=== PATIENT | female | born 1935 | race Caucasian/White ===

== ENCOUNTER 2017-11-17 06:33 | Day surgery (SDC) | payer MEDICARE, BC ==
[~2017-11-17 06:33] MED LIST: Acetaminophen TAB* 325 MG PO PRN; Buffered Lidocaine 0.9% SYRIN* 5 ML/SYR SYRINGE INTRADERM ONE; Proparacaine 0.5% OPHTH.SOL* 15 ML BTL ONE; mitoMYcin 0.2 MG (0.02%) in Sterile Water for Inj* 1 ML OPHTHALMIC SCH
[2017-11-17] MEDS ORDERED: Hyaluronidase OVINE* 200 UNIT/ML ML SUBCUT ONE (07:02)
[2017-11-17] MEDS ORDERED: Sodium Bicarbonate 8.4% SYR* 10 ML SYRINGE ONE (07:02)
[2017-11-17] MEDS ORDERED: Lidocaine 2% PF* 10 ML AMP ONE (07:02)
[2017-11-17] MEDS ORDERED: Povidone Iodine 5% OPTH* 30 ML BTL ONE (07:04)
[2017-11-17] MEDS ORDERED: Acetylcholine 1:100 OPTH* OPHTH.SOLN ONE (07:04)
[2017-11-17] MEDS ORDERED: Atropine 1% OPHTH.SOL* 2 ML BOT - 2 ML ONE (07:04)
[2017-11-17] MEDS ORDERED: Neomycin/Polymy/Dex OPTH.SUSP* MAXITROL 0.1% 5 ML ONE (07:04)
[2017-11-17] MEDS ORDERED: BSS OPTH.SOL* BTL ONE (07:04)
[2017-11-17] MEDS ORDERED: Midazolam* 1 MG/ML 2 ML VIAL (2 MG) ONE (07:18)
[2017-11-17] MEDS ORDERED: fentaNYL* 50 MCG/ML 2 ML VIAL (100 MCG VIAL) ONE (07:18)
[2017-11-17] MEDS ORDERED: Propofol* 10 MG/ML 20 ML BTL IV PUSH ONE (07:27)
[2017-11-17] MEDS ORDERED: Triamcinolone Acetonide* 40 MG/ML 1 ML VIAL ONE (08:11)
[2017-11-17 08:45] VITALS: BP 154/53
--- NOTE | 2017-11-17 20:48 | OP ---
DATE OF OPERATION: 11/17/17 [facility] DATE OF : 39 SURGEON: Franc Romero M.D. ANESTHESIA: Local with MAC. PRE-OP DIAGNOSIS: Uncontrolled glaucoma, right eye. POST-OP DIAGNOSIS: Uncontrolled glaucoma, right eye. OPERATIVE PROCEDURE: Trabeculectomy, right eye. COMPLICATIONS: None. DESCRIPTION OF PROCEDURE: The patient was given retrobulbar anesthesia in the operating room, 0.75 Marcaine and 2% lidocaine with epinephrine, 4 cc ingested into the muscle cone without difficulty. Eye was prepped and draped in the usual sterile fashion. Lid speculum placed, superior limbal. A 6-0 silk traction suture was placed and then the eye rotated inferiorly. A Fornix-based conjunctival flap was created using Valarie scissors from 10 o'clock to 12 o' clock position. Mitomycin-C 0.2 mg/mL placed sub-Tenon's for 1 minute and thoroughly irrigated. A triangular limbal based flap past the scleral thickness created with the 75 blade and the crescent blade. A 75 blade used to make paracentesis at the 8 o'clock position. Anterior chamber entered with a 3- mm keratome. A 3 x 1 mm trabecular block excised using the Marilyn punch. A peripheral iridectomy performed with Vannas scissors in the area of 11 o'clock. The flap suture done with one 10-0 nylon interrupted suture. Tension adjusted for proper fluid flow. Conjunctiva was closed using a running locking 10-0 silk and running locking 10-0 Vicryl. Sub- Tenon's, Kenalog 40 mg/mL, 1 mL was injected. The traction suture was removed. Maxitrol and atropine was given. The eye was tightly patched. [id number]/[facility] #: [id number] [facility]
== END 2017-11-17 08:53 | disposition home or self-care (01) ==
LOC: OREAST 06:33
PROVIDERS: ATTEND Specialist
DX: H40.143 Capsular glaucoma with pseudoexfoliation of lens, bilateral (principal); E11.3293 Type 2 diabetes mellitus with mild nonproliferative diabetic retinopathy without macular edema, bilateral; Z79.4 Long term (current) use of insulin; H34.11 Central retinal artery occlusion, right eye; H25.11 Age-related nuclear cataract, right eye; F10.20 Alcohol dependence, uncomplicated; I10 Essential (primary) hypertension; Z85.41 Personal history of malignant neoplasm of cervix uteri
CPT/HCPCS: A9270-GY; J2001; J2250; J2704; J3010; J3301; J3471; J9280

== ENCOUNTER 2023-11-16 06:08 | Inpatient (IN) ==
[2023-11-16 06:52] LABS: Hematocrit 43.6 % (35-45); Hemoglobin 14.3 g/dL (11.5-14.3); Mean Corpuscular Hemoglobin 29.4 pg (27-33); Mean Corpuscular Hgb Conc 32.9 g/dL (31-36); Mean Corpuscular Volume 89.3 fL (80-97); Mean Platelet Volume 9.5 fL (7.5-11.2); Platelet Count 228 10^3/uL (150-450); Red Blood Count 4.88 10^6/uL (3.63-4.92); White Blood Count 23.1 10^3/uL (3.8-11.8)
[2023-11-16 06:57] LABS: Urine Appearance Turbid; Urine Bilirubin Negative (Negative); Urine Blood Negative (Negative); Urine Color Yellow; Urine Glucose 3+(>=500 mg/dL) (Negative); Urine Ketones Negative (Negative); Urine Nitrite Negative (Negative); Urine Protein 1+(30 mg/dL) (Negative); Urine Specific Gravity 1.017 (1.002-1.030); Urine Urobilinogen Negative (Negative)
[2023-11-16 07:01] LABS: Budding Yeast Present (Absent); Urine Bacteria 3+ (Absent); Urine Red Blood Cell Absent (Absent); Urine White Blood Cell 1+(6-10/hpf) (Absent); Urine Yeast Present (Absent)
[2023-11-16 07:10] LABS: INR 0.95 (0.83-1.13)
[2023-11-16 07:14] LABS: Albumin 3.3 g/dL (3.2-5.2); Albumin/Globulin Ratio 1.2 (1-3); Calcium 8.9 mg/dL (8.6-10.3); Creatinine, Serum 0.87 mg/dL (0.51-0.95); Globulin 2.7 g/dL (2-4); Magnesium 2.1 mg/dL (1.9-2.7); Potassium 3.8 mmol/L (3.5-5.0); Total Bilirubin 0.7 mg/dL (0.2-1.0); eGFR CKD-EPI 64.8 (>60)
[2023-11-16] MEDS ORDERED: cefTRIAXone 1 gm/50 mL D5W 1 GM/50 ML BAG IV ONE (07:21)
[2023-11-16] MEDS ORDERED: Lactated Ringers 1000 ml BAG 1,000 ML IV ONE (07:21)
[2023-11-16] MEDS ORDERED: Iodixanol (CONTRAST) 320 MG/ML 100 ML SDV IV ONE (07:54)
[2023-11-16 08:51] LABS: TSH Ultra Thyroid Stim Horm 2.6 mcIU/mL (0.34-5.60)
[2023-11-16 09:12] LABS: High Sensitivity Troponin 1 Hr 23 pg/mL (<15)
[2023-11-16] MEDS ORDERED: Azithromycin 500 mg/250 ml NS 500 MG/250 ML BAG IVPB ONE (09:42)
[2023-11-16 10:26] LABS: ABS Basophils 0.1 10^3/uL (0.0-0.1); ABS Lymphocytes 0.7 10^3/uL (1.0-4.8); ABS Monocytes 1.8 10^3/uL (0.0-0.9); ABS Neutrophils 20.5 10^3/uL (1.5-7.6); ABS Nucleated RBC 0.01 10^3/ul; Lymphocyte % 2.8 %; Nucleated Red Blood Cells % 0.1 %/100WBC (0.0-0.8)
[2023-11-16] MEDS ORDERED: Dextrose 50% Syringe 50 ml 25 GM/50 ML SYRINGE IV PUSH PRN (11:16)
[2023-11-16] MEDS ORDERED: Enoxaparin 40 MG/0.4 ML SYR SUBCUT SCH (12:00)
[2023-11-16] MEDS ORDERED: levETIRAcetam 500 MG IVPREMIX 500 MG/100 ML BAG IVPB ONE (13:13)
[2023-11-16 15:26] LABS: Free T4 1.16 ng/dL (0.61-1.12)
[2023-11-16] MEDS ORDERED: D5LR 1000 ml BAG 1,000 ML IV SCH (19:00)
[2023-11-17] MEDS ORDERED: Vancomycin 1,000 MG in NS 0.9% 250 ml 250 ML IVPB SCH (02:34)
[2023-11-17] MEDS ORDERED: Acetaminophen IV 1 GM/100ML 1,000 MG/100 ML BAG IV ONE (02:37)
[2023-11-17] MEDS ORDERED: Vancomycin Trough Check NOTE FOLLOW UP ONE (03:00)
[2023-11-17] MEDS ORDERED: Cefepime 2 GM in Dextrose 2 GM/50 ML BAG IV SCH (04:00)
[2023-11-17 05:25] VITALS: BP 107/42
[2023-11-17 05:54] LABS: ABS Lymphocytes 1.2 10^3/uL (1.0-4.8); ABS Monocytes 1.1 10^3/uL (0.0-0.9); ABS Neutrophils 11.2 10^3/uL (1.5-7.6); ABS Nucleated RBC 0.01 10^3/ul; Hematocrit 40.3 % (35-45); Hemoglobin 13.5 g/dL (11.5-14.3); Lymphocyte % 8.9 %; Mean Corpuscular Hemoglobin 29.3 pg (27-33); Mean Corpuscular Hgb Conc 33.5 g/dL (31-36); Mean Corpuscular Volume 87.7 fL (80-97); Mean Platelet Volume 9.4 fL (7.5-11.2); Nucleated Red Blood Cells % 0.1 %/100WBC (0.0-0.8); Platelet Count 186 10^3/uL (150-450); Red Blood Count 4.59 10^6/uL (3.63-4.92); White Blood Count 13.4 10^3/uL (3.8-11.8)
[2023-11-17 06:11] LABS: Calcium 8.4 mg/dL (8.6-10.3); Creatinine, Serum 0.65 mg/dL (0.51-0.95); eGFR CKD-EPI 85.7 (>60)
[2023-11-17] MEDS ORDERED: Lorazepam PYXIS KEY PRN ×2 (07:55→09:49)
[2023-11-17] MEDS ORDERED: LORazepam 2 mg VIAL 1 ml IV PUSH ONE ×2 (07:56→09:00)
[2023-11-17 08:20] LABS: Magnesium 1.8 mg/dL (1.9-2.7)
[2023-11-17] MEDS: Acetaminophen IV 1 GM/100ML 1,000 MG/100 ML BAG IV SCH ×2 (08:21→18:54)
[2023-11-17] MEDS ORDERED: LORazepam 2 mg VIAL 1 ml ONE ×2 (08:22→09:13)
[2023-11-17] MEDS ORDERED: levETIRAcetam 1000MG IVPREMIX 1,000 MG/100 ML BAG IVPB ONE (08:30)
[2023-11-17] MEDS ORDERED: levETIRAcetam IV 250 MG in NS 0.9% 100 ml BAG 100 ML IVPB SCH (09:00)
[2023-11-17] MEDS ORDERED: Azithromycin 500 mg/250 ml NS 500 MG/250 ML BAG IVPB SCH (09:00)
[2023-11-17] MEDS ORDERED: Senna TAB 8.6 mg TAB PO SCH (09:00)
[2023-11-17] MEDS ORDERED: cefTRIAXone 1 gm/50 mL D5W 1 GM/50 ML BAG IV SCH ×2 (09:30→10:00)
[2023-11-17] MEDS ORDERED: Vancomycin 1,000 MG in NS 0.9% 250 ml 250 ML IVPB ONE (10:00)
[2023-11-17] MEDS ORDERED: LORazepam VIAL (for drip) 100 MG in D5W 50 ml BAG 50 ML IV SCH (10:00)
[2023-11-17] MEDS ORDERED: Vancomycin per Pharmacy 1 EA NOTE FOLLOW UP PRN (10:13)
[2023-11-17] MEDS: Scopolamine 1 mg/72hr PATCH TRANSDERM SCH (10:38)
[2023-11-17] MEDS: levETIRAcetam 1000MG IVPREMIX 1,000 MG/100 ML BAG IVPB SCH ×2 (11:07→22:13)
[2023-11-18] MEDS: Acetaminophen IV 1 GM/100ML 1,000 MG/100 ML BAG IV SCH ×4 (00:51→17:44)
[2023-11-18] MEDS: levETIRAcetam 1000MG IVPREMIX 1,000 MG/100 ML BAG IVPB SCH ×2 (09:10→21:39)
[2023-11-18] MEDS: LORazepam 2 mg VIAL 1 ml IV PUSH PRN (18:15)
[2023-11-19] MEDS: Acetaminophen IV 1 GM/100ML 1,000 MG/100 ML BAG IV SCH ×3 (00:57→16:25)
[2023-11-19] MEDS: LORazepam 2 mg VIAL 1 ml IV PUSH PRN ×2 (02:29→11:41)
[2023-11-19] MEDS: Morphine 2 MG/ML SYRINGE IV PRN ×7 (03:46→22:59)
[2023-11-19] MEDS: levETIRAcetam 1000MG IVPREMIX 1,000 MG/100 ML BAG IVPB SCH ×2 (08:16→21:30)
[2023-11-20] MEDS: Acetaminophen IV 1 GM/100ML 1,000 MG/100 ML BAG IV SCH ×3 (01:08→18:19)
[2023-11-20] MEDS: LORazepam 2 mg VIAL 1 ml IV PUSH PRN ×2 (01:18→06:20)
[2023-11-20] MEDS: Morphine 2 MG/ML SYRINGE IV PRN ×2 (05:49→19:30)
[2023-11-20] MEDS: Scopolamine 1 mg/72hr PATCH TRANSDERM SCH (10:00)
[2023-11-20] MEDS: levETIRAcetam 1000MG IVPREMIX 1,000 MG/100 ML BAG IVPB SCH ×2 (11:56→21:17)
[2023-11-21] MEDS: Acetaminophen IV 1 GM/100ML 1,000 MG/100 ML BAG IV SCH ×3 (00:08→16:12)
[2023-11-21] MEDS: Morphine 2 MG/ML SYRINGE IV PRN ×4 (00:09→19:36)
[2023-11-21] MEDS: LORazepam 2 mg VIAL 1 ml IV PUSH PRN ×3 (02:47→19:37)
[2023-11-21] MEDS: levETIRAcetam 1000MG IVPREMIX 1,000 MG/100 ML BAG IVPB SCH ×2 (09:00→23:30)
[2023-11-22] MEDS: Acetaminophen IV 1 GM/100ML 1,000 MG/100 ML BAG IV SCH (00:17)
== END 2023-11-21 23:26 | disposition expired | DRG 100 ==
LOC: ED 06:08 → SUATTDRO 09:55 → EDHOLD 09:55 → MED 10:53
PROVIDERS: ADMIT Internal Medicine; ATTEND Internal Medicine